=== PATIENT | male | born 1995 | race Caucasian/White ===

== ENCOUNTER 2021-08-19 14:58 | Emergency (ER) | payer OTHER, SELFPAY ==
[2021-08-19 15:16] VITALS: BP 149/94; PULSE 123; RESP 19; TEMP 39.6; O2SAT 100
--- NOTE | 2021-08-19 16:28 | ED.FEVER ---
HPI - Fever General Chief Complaint: Fever Stated Complaint: strep throat, fever Time Seen by Provider: 08/19/21 16:21 Source: patient Mode of arrival: ambulatory Limitations: no limitations History of Present Illness HPI Narrative: This is a 26 year old male that presents to the ER for sore throat present x 3 days. Associated with fever and myalgias. Reports he gets strep almost yearly and this feels like he has strep again. He has been taking over the counter pain medication with little relief. He took one Tylenol prior to arrival in the ED. Denies cough or shortness of breath. Related Data Allergies Allergy/AdvReac Type Severity Reaction Status Date / Time No Known Allergies Allergy Verified 08/19/21 16:47 Review of Systems Review of Systems: CONSTITUTIONAL: Reports fever ENT: Reports sore throat. Denies rhinorrhea, congestion RESPIRATORY: Denies cough or dyspnea. All systems reviewed & are unremarkable except as noted in HPI and below PMFSH Past Medical History Medical History (Updated 08/19/21 @ 17:42 by Nuria Velasco PA-C) No active medical problems Social History Social History (Updated 08/19/21 @ 16:31 by Nuria Velasco PA-C) Smoking status: Never smoker Exam Narrative: GENERAL: Well-appearing, well-nourished, and in no acute distress. HEAD: Normocephalic, atraumatic. EYES: EOMI. ENT: Nares clear, no rhinorrhea or epistaxis. Mucous membranes moist. Oropharynx with symmetric tonsillar hypertrophy and erythema, exudate present, no other lesions. Uvula midline. No trismus. Bilateral TMs pearly fernandes non-bulging NECK: Supple. No adenopathy or masses. CHEST: Clear to auscultation. No respiratory distress. No wheezes rales or rhonchi HEART: Regular rate and rhythm. No murmur heard. Normal peripheral pulses. EXTREMITIES: Normal range of motion. No edema. SKIN: Warm, dry, no rash. NEURO: No focal deficits. Alert and oriented x3. PSYCH: Normal mood and affect Course Vital Signs Vital signs: Vital Signs Temperature 103.2 F H 08/19/21 15:16 Pulse Rate 123 H 08/19/21 15:16 Respiratory Rate 19 08/19/21 15:16 Blood Pressure 149/94 H 08/19/21 15:16 Pulse Oximetry 100 08/19/21 15:16 Temperature 103.2 F H 08/19/21 15:16 Pulse Rate 123 H 08/19/21 15:16 Respiratory Rate 19 08/19/21 15:16 Blood Pressure 149/94 H 08/19/21 15:16 Pulse Oximetry 100 08/19/21 15:16 MDM - Fever MDM Narrative Medical decision making narrative: Patient presents to the emergency department for fever, sore throat, myalgias. Febrile upon arrival and tachycardic. Reporting he felt similar to when he has had strep in the past. Given dose of ibuprofen in the ED. Strep screen was negative. I did then order further work-up with influenza, COVID, and mono screen. Patient refused any further evaluation and management. Strep screen was sent for culture. Told patient I would send antibiotics to the pharmacy if this does come back positive he can start them. He was encouraged to return to the emergency department anytime for further evaluation and management Lab Data Attestation: I reviewed the patient's lab results. Labs: Strep Screen Presumptive Negative *(Reference Range: Negative)* Critical Care Time Critical Care Time Critical Care Time: No Discharge Plan Discharge Clinical Impression: Pharyngitis Qualifiers: Pharyngitis/tonsillitis etiology: unspecified etiology Qualified Code(s): J02.9 - Acute pharyngitis, unspecified Patient Disposition: Home, Self-Care Condition: Stable Instructions: Antibiotic Form, Pharyngitis (ED) Additional Instructions: Return to the ER at any time for further evaluation and treatment Rest. Tylenol or ibuprofen as needed for pain. Remain well-hydrated If your strep culture comes back positive you may start antibiotics as directed Prescriptions: New amoxicillin 500 mg capsule 500 mg PO Q
[2021-08-19] MEDS: IBUPROFEN 600 MG TABLET PO (16:48)
--- NOTE | 2021-08-19 17:28 | PC.NURSE ---
Patient was informed that there was a COVID and influenza swab ordered, however patient refused.
--- NOTE | 2021-08-19 17:39 | PC.NURSE ---
Patient refused lab draw. Provider aware.
== END 2021-08-19 17:51 | disposition home or self-care (01) ==
PROVIDERS: Emergency Provider Emergency Medicine
DX: J02.9 Acute pharyngitis, unspecified (principal)
CPT/HCPCS: 87081; 87804; 87880; 99283; A9270

== ENCOUNTER 2021-09-18 23:29 | Inpatient (IN) | payer OTHER, SELFPAY ==
--- NOTE | ~2021-09-18 | CT_ITS ---
EXAMINATION: CT chest abdomen pelvis w con DATE: 09/19/2021 03:18 INDICATION: Mid abdominal pain radiating to the chest. TECHNIQUE: Computed tomography (CT) of the chest, abdomen, and pelvis was performed with 100 mL Omnip aque 350 intravenous contrast. Automated exposure control and iterative reconstruction technique were employed. The dose-length product was 463.67 mGy-cm. COMPARISON: None FINDINGS: CHEST CT: Calcified right lung nodules and calcified right hilar lymph nodes are consistent with old granulomat ous disease. No pleural effusion. The heart size is normal. No pericardial effusion. There is mild ch ronic anterior wedging of multiple thoracic vertebral bodies associated with Schmorl's nodes. There i s moderate thoracic spondylosis. ABDOMEN/PELVIS CT: The liver, gallbladder, pancreas, adrenal glands, and kidneys are normal. Calcifications in the splee n are consistent with old granulomatous disease. There are no dilated loops of bowel. There is no boris dence of terminal ileitis. The appendix is normal. There are no pathologically enlarged lymph nodes. There is no free intraperitoneal fluid. There is mild lumbar spondylosis. IMPRESSION: 1. No etiology for the patient's symptoms. Reviewed, dictated and finalized at location A. OFFICE MARKUP CLERK
[2021-09-18 23:30] VITALS: BP 132/80; PULSE 122; RESP 20; TEMP 39.5; O2SAT 99
--- NOTE | 2021-09-18 23:43 | ED.ABDPAIN ---
HPI - Abdominal Pain General Chief Complaint: Abdominal Pain Stated Complaint: HIGH FEVER/ADB PAIN Time Seen by Provider: 09/18/21 23:40 Source: patient and RN notes reviewed Mode of arrival: ambulatory Limitations: no limitations History of Present Illness HPI narrative: Patient was recently at another facility where he had complete workup done for his abdominal pain. He was found to have CT evidence of Crohn's disease and a fever to 105. He was to be transferred to higher level of care at [facility] in [facility]. He refused transfer and signed out AMA. Says he has just been getting worse every day and finally could not take it anymore tonight. He apparently was also tested for COVID and was negative. MD elicited complaint: abdominal pain Onset (ago): day(s) (6) Pain Consistency: intermittent Location: diffuse Severity: severe Pain scale (0-10): 9 Quality: cramping, stabbing and sharp Radiation: none Migration to: no migration Exacerbating factors: eating and movement Relieving factors: nothing Associated symptoms: nausea, vomiting and diarrhea Treatments prior to arrival: NSAIDs Related Data Home Medications Medication Instructions Recorded Confirmed No Home Medications 09/18/21 09/18/21 Allergies Allergy/AdvReac Type Severity Reaction Status Date / Time No Known Allergies Allergy Verified 08/19/21 16:47 Review of Systems Review of Systems: All systems reviewed & are unremarkable except as noted in HPI and below PMFSH Past Medical History Medical History (Updated 09/19/21 @ 06:50 by Andrew Regalado MD) No active medical problems Social History Social History (Updated 09/18/21 @ 23:55 by Andrew Regalado MD) Smoking status: Never smoker Substance use: current Substance use type: marijuana Exam Const: General: no acute distress, alert and ill appearing acutely Nutritional Appearance: well nourished and thin Orientation/consciousness: patient oriented x3 HENMT: Head: normal to inspection Ears: external ears normal Eyes: Conjunctivae: conjunctivae normal Pupils: Equal, round and reactive pupils present EOM: EOMs intact bilaterally Neck: Neck: normal visual inspection Resp: Effort & Inspection: normal respiratory effort Auscultation: clear to auscultation bilaterally Cardio: Rate: tachycardic Rhythm: regular rhythm GI: GI Palp: Yes Soft to palpation, Yes Tenderness to palpation present (GI), Yes Guarding due to palpation present (GI) and Yes Rebound tenderness present Auscultation: Hypoactive bowel sounds present Back/Spine/Pelvis: Back: no CVA tenderness Cervical Spine: cervical ROM normal Thoracic/Lumbar Spine: thoraco-lumbar ROM normal Skin: General skin exam: normal color Rashes: no rashes Neuro: General: patient oriented x3, moves all extremities, no meningeal signs, no focal motor deficits and CN's II-XI intact bilaterally Speech: normal speech Gait exam (Neuro): Normal gait present Extrem: General: normal to inspection and no clubbing, cyanosis or edema Psych: Appearance: grossly normal and well kempt Mental Status: mental status grossly normal Affect: normal affect Attitude: cooperative Thought content: Yes Normal thought content present Course Course Emergency Course: I spoke with Dr. Desai, general surgeon for [facility] and he did not think this was a surgical case. He advised patient needed antibiotics and a colonoscopy at some later time. I discussed the case with Dejuan Morillo APN who agreed with admission. Vital Signs Vital signs: Vital Signs Temperature 39.5 C H 09/18/21 23:30 Pulse Rate 122 H 09/18/21 23:30 Respiratory Rate 20 09/18/21 23:30 Blood Pressure 132/80 09/18/21 23:30 Pulse Oximetry 99 09/18/21 23:30 Temperature 37.6 C H 09/19/21 06:30 Pulse Rate 78 09/19/21 06:30 Respiratory Rate 18 09/19/21 06:30 Blood Pressure 124/63 09/19/21 06:30 Pulse Oximetry 98 09/19/21 06:30
[2021-09-19] VITALS (12 sets, daily range): BP systolic 121–135; BP diastolic 63–79; PULSE 62–106; RESP 18–20; TEMP 36–39.3; O2SAT 95–100; BMI 25.0
[2021-09-19] MEDS: LACTATED RINGERS 1,000 ML 999 ML IV CONT (00:05)
[2021-09-19 00:11] LABS: Hematocrit 38.3 % (40.0-54.0); Hemoglobin 13.5 g/dL (14.0-18.0); Mean Corpuscular HGB Conc 35.2 g/dL (32.0-36.0); Mean Corpuscular Hemoglobin 31.1 pg (27.0-31.0); Mean Corpuscular Volume 88.2 fL (78.0-102.0); Mean Platelet Volume 8.8 fl (8.7-11.0); Platelet Count Result 300 K/mm3 (150-420); Red Blood Count 4.34 M/mm3 (4.70-6.10); Red Cell Distribution Width 13.2 % (11.6-14.4)
[2021-09-19 00:28] LABS: Alanine Aminotransferase 58 U/L (16-63); Albumin Level 3.2 g/dL (3.4-5.0); Alkaline Phosphatase 147 U/L (46-116); Anion Gap 15 mmol/L (8-16); Aspartate Amino Transferase 32 U/L (15-37); Bilirubin,Total 0.4 mg/dL (0.00-1.00); Blood Urea Nitrogen 13 mg/dL (7-18); Calcium 8.7 mg/dL (8.5-10.1); Carbon Dioxide 24 mmol/L (21-32); Chloride 94 mmol/L (98-108); Estimated CRCL calculation 72 ml/min; Estimated Glomerular Filt Rate > 60; Glucose 100 mg/dL (70-99); Lipase 148 U/L (73-393); Osmolality Calculated 276 mOsm/kg (285-295); Potassium 3.8 mmol/L (3.5-5.1); Sodium 133 mmol/L (136-145); Total Protein 7.7 g/dL (6.4-8.2)
[2021-09-19 00:33] LABS: Lactic Acid Reflex 1.7 mmol/L (0.4-2.0); White Blood Count 27.7 K/mm3 (4.8-10.8)
[2021-09-19 00:49] LABS: Neutrophils Percent Manual 78 % (46-73); Total Cells Counted 100
[2021-09-19 00:50] LABS: Band Neutrophils Percent 0 % (0-6); Eosinophils Absolute Manual 0.55 K/mm3 (0.02-0.5); Eosinophils Percent Manual 2 % (1-6); Lymphocytes Absolute Manual 3.87 K/mm3 (1.1-4.5); Lymphocytes Percent Manual 14 % (18-44); Monocytes Absolute Manual 1.66 K/mm3 (0.1-0.90); Monocytes Percent Manual 6 % (3-9); Platelet Estimate Adequate (Adequate); Toxic Granulation Present (NORMAL)
--- NOTE | 2021-09-19 02:50 | PC.NURSE ---
Call back from Dr León at [place] who spoke c ERP Dr Regalado, POC discussed for CT scan to be done again and compare to findings from [facility] 3 days ago. Pt informed on POC a this time. Pt resting and has no c/o at this time, VSS.
[2021-09-19 03:12] LABS: SARS-CoV-2 RNA PCR Negative (Negative)
--- NOTE | 2021-09-19 05:13 | PC.NURSE ---
Pt resting, still awaiting CT results, numerous calls made to [facility] for a report and told a radiologist is assigned to it. Explained to pt about wait due to CT results not read yet.
--- NOTE | 2021-09-19 05:20 | PC.NURSE ---
Call placed back to [facility] as it has been over 2 hrs awaiting for report. Spoke blanco silva and she will call radiologist to have read DEMARCUS. Awaiting results. Pt continues resting, no changes noted at this time.
[2021-09-19] MEDS: IBUPROFEN 600 MG TABLET PO (05:49)
--- NOTE | 2021-09-19 07:05 | PC.NURSE ---
Patient arrived to [facility] at 0700 via w/c with staff assist. Able to stand and transfer to bed. No valuable items with patient. Patient alert and oriented. Able to voice needs. Orientated to hospital environment. Educated on use of call light. Personal items within reach.
[2021-09-19] MEDS: ENOXAPARIN 40 MG/0.4 ML SYRINGE SUB-Q (07:56)
[2021-09-19] MEDS: DEXTROSE 5%/0.45% SOD CHL 1,000 ML 125 ML IV CONT (07:57)
[2021-09-19] MEDS: CIPROFLOXACIN 400 MG/D5W 200ML 200 ML 200 MG IVPB ×2 (09:31→21:17)
[2021-09-19] MEDS: methylPREDNISolone SOD SUCC 125 MG VIAL IV PUSH ×2 (09:32→09:52)
[2021-09-19] MEDS: metroNIDAZOLE 250 MG TABLET 500 MG PO ×3 (09:32→21:17)
--- NOTE | 2021-09-19 09:41 | PC.NURSE ---
Spoke with TIMBER HARVESTER OPERATOR about switching patient from D5 Na+ 0.45 to Na+0.9% and TIMBER HARVESTER OPERATOR advised to wait until patient has started eating/drinking.
--- NOTE | 2021-09-19 10:43 | PM.IMHP ---
H&P: HPI History of Present Illness Date/Time: 09/19/21 10:43 this is a 26-year-old male with a presented to ED with complaints of worsening abdominal pain. Patient denies any past medical history. According to patient a couple of days ago he presented to the [place] emergency department and was diagnosed with Crohn's disease at that time he also had a fever of 105. At that time it was advised that he transfer to [facility] for a specialty consult, patient refused and left AMA. Patient notes that his condition has worsened and as a result he had to come to our emergency department. Patient notes that his abdominal pain was unbearable. While in the ED per ED physician surgery was called and it was advised that the patient be treated with antibiotics and have a EGD completed as an outpatient. Vital signs 124/65, 86, 18, 98.7, 98% on room air, WBCs 27.7, hemoglobin 13.5, hematocrit 38.3, plt 300, NA 133, potassium 3.8, BUN 13 creatinine 1.26 glucose 100 lactic acid 1.7, AST 32, ALT 58, lipase 148, Covid negative, and CT unremarkable. The patient denies SOB, CP, palpitation, extremity numbness, lightheadedness, dizziness, constipation, diarrhea, chills, or fever. Patient notes that his abdominal pain has improved but is still exist. He continues to have nausea with no vomiting. Chief Complaint: Abdominal pain, nausea Review of Systems Review of Systems: A 14 organ system Review of Systems was performed and pertinent positives included in the HPI, otherwise remaining ROS is negative. [facility] Past Medical History Medical History (Updated 09/19/21 @ 11:12 by AKI Ozuna) No active medical problems Social History Social History (Updated 09/18/21 @ 23:55 by Andrew Regalado MD) Smoking packs per day: 0.5 Smoking cigarettes per day: 10.0 Years smoked: 7 Smoking pack-years: 3.50 Smoking status: Current every day smoker Tobacco type: cigarettes Second hand tobacco smoke exposure: Yes Alcohol intake: former Substance use: current Substance use type: marijuana Spiritual care concerns: No Meds Home Medications and Allergies Home Medications Medication Instructions Recorded Confirmed Type No Home Medications 09/18/21 09/18/21 History Allergies Allergy/AdvReac Type Severity Reaction Status Date / Time No Known Allergies Allergy Verified 08/19/21 16:47 Vital Signs Vital Signs - 24 hr 09/18/21 23:30 09/19/21 00:15 09/19/21 00:43 Temperature 103.1 F H 102.8 F H Pulse Rate 122 H 106 H Respiratory Rate 20 20 Blood Pressure 132/80 127/78 Pulse Oximetry 99 97 09/19/21 01:38 09/19/21 02:30 09/19/21 03:00 Temperature 98.7 F Pulse Rate 78 84 89 Respiratory Rate 20 20 18 Blood Pressure 130/64 124/75 121/69 Pulse Oximetry 95 98 97 09/19/21 05:27 09/19/21 06:07 09/19/21 06:22 Temperature 101.9 F H 102 F H 99.7 F H Pulse Rate 92 83 Respiratory Rate 20 20 Blood Pressure 135/79 126/68 Pulse Oximetry 97 97 09/19/21 06:30 09/19/21 08:00 Temperature 99.7 F H 98.7 F Pulse Rate 78 86 Respiratory Rate 18 18 Blood Pressure 124/63 124/65 Pulse Oximetry 98 98 Exam Narrative: GENERAL: This is a well-nourished, well-developed patient, in no apparent distress. HEAD: normocephalic, atraumatic. EYES: PERRL. Sclera clear/white. Vision is grossly intact. EARS: External ears normal, auditory canals clear and without drainage, TMs normal without perforation. Hearing grossly intact. NOSE: External nose normal with no obvious nasal discharge, nares without redness, no rhinorrhea. THROAT: Mucous membranes moist, posterior pharynx clear. NECK: Neck supple, non-tender without lymphadenopathy, masses or thyromegaly. CARDIOVASCULAR: Regular rate and rhythm without murmurs, gallops, or rubs. RESPIRATORY: Clear to auscultation. Breath sounds equal bilaterally. No wheezes, rales, or rhonchi. GASTROINTESTINAL: Abdomen soft, tender with palpation, guarding and, distended.
[2021-09-19 11:52] LABS: CRP < 0.5 mg/dL (0.0-0.9)
[2021-09-19] MEDS: HYDROmorphone HCL INJ (*CRX) 2 MG/ML VIAL 0.5 MG IV PUSH (13:27)
--- NOTE | 2021-09-19 16:26 | PC.NURSE ---
Patient called nurse into room to request Nicotine patch. Hospitalist notified. New order received for patch.
[2021-09-19] MEDS: SODIUM CHLORIDE 0.9% IV 1,000 ML 150 ML IV CONT (16:42)
[2021-09-19] MEDS: NICOTINE (*PBKC) 21 MG PATCH 1 PATCH TRANSDERM (16:43)
[2021-09-19] MEDS: HYDROcodone/acetaminophen (*CRX) 7.5-325 MG TABLET 1 TAB PO (21:19)
[2021-09-20] VITALS: BP 110/74; PULSE 71; RESP 18; TEMP 36.4; O2SAT 99
[2021-09-20] MEDS: SODIUM CHLORIDE 0.9% IV 1,000 ML 150 ML IV CONT (00:40)
[2021-09-20 05:10] LABS: Hematocrit 36.7 % (40.0-54.0); Hemoglobin 12.3 g/dL (14.0-18.0); Mean Corpuscular HGB Conc 33.5 g/dL (32.0-36.0); Mean Corpuscular Hemoglobin 30.4 pg (27.0-31.0); Mean Corpuscular Volume 90.8 fL (78.0-102.0); Mean Platelet Volume 8.9 fl (8.7-11.0); Platelet Count Result 349 K/mm3 (150-420); Red Blood Count 4.04 M/mm3 (4.70-6.10); Red Cell Distribution Width 13.5 % (11.6-14.4); White Blood Count 19.2 K/mm3 (4.8-10.8)
[2021-09-20 05:30] LABS: Alanine Aminotransferase 44 U/L (16-63); Albumin Level 2.7 g/dL (3.4-5.0); Alkaline Phosphatase 120 U/L (46-116); Anion Gap 8 mmol/L (8-16); Aspartate Amino Transferase 16 U/L (15-37); Bilirubin,Total 0.2 mg/dL (0.00-1.00); Blood Urea Nitrogen 11 mg/dL (7-18); Calcium 8.9 mg/dL (8.5-10.1); Carbon Dioxide 27 mmol/L (21-32); Chloride 103 mmol/L (98-108); Estimated CRCL calculation 108 ml/min; Estimated Glomerular Filt Rate > 60; Glucose 148 mg/dL (70-99); Lipase 519 U/L (73-393); Magnesium 2.4 mg/dL (1.8-2.4); Osmolality Calculated 288 mOsm/kg (285-295); Sodium 138 mmol/L (136-145); Total Protein 7.2 g/dL (6.4-8.2)
[2021-09-20 05:32] LABS: CRP > 10.6 mg/dL (0.0-0.9)
[2021-09-20] MEDS: metroNIDAZOLE 250 MG TABLET 500 MG PO ×2 (06:12→14:24)
[2021-09-20] MEDS: CIPROFLOXACIN 400 MG/D5W 200ML 200 ML 200 MG IVPB (07:51)
[2021-09-20] MEDS: NICOTINE (*PBKC) 21 MG PATCH 1 PATCH TRANSDERM (07:52)
[2021-09-20] MEDS: ENOXAPARIN 40 MG/0.4 ML SYRINGE SUB-Q (07:54)
[2021-09-20 08:00] VITALS: BP 117/75; PULSE 85; RESP 16; TEMP 36; O2SAT 100
--- NOTE | 2021-09-20 10:25 | WPDPN ---
Progress Note: A&P Assessment and Plan (1) Ileitis, terminal: Qualifiers: Digestive disease complication type: without complication Qualified Code(s): K50.00 - Crohn's disease of small intestine without complications Code(s): K50.00 - Crohn's disease of small intestine without complications Status: Acute Assessment and Plan: CT on 09/15/2021 from outside hospital indicates abnormal terminal ileum with slight wall thickening and decreased density in the wall suggesting terminal ileitis or possible early Crohn's. Several small but slightly enlarged inguinal lymph node. No evidence of appendicitis CT at our facility indicates no etiology for patient's symptoms Patient treated with Zosyn in the ED changed Cipro and Flagyl day 2, Solu-Medrol discontinued Surgeon on-call notified recommended the patient be treated with antibiotics and follow-up with a outpatient EGD Continue pain regiment and advanced to regular (2) Infection: Code(s): B99.9 - Unspecified infectious disease Status: Acute Assessment and Plan: Etiology unknown WBCs 27.7 >19.2 on admission temperature 102, afebrile Patient with 2 doses of Zosyn changed to clindamycin and Flagyl Blood culture and stool work-up pending CT of the abdomen unremarkable Lactic acid within normal limits CRP <0.5>>10.6 (3) Elevated lipase: Code(s): R74.8 - Abnormal levels of other serum enzymes Status: Acute Assessment and Plan: Slightly elevated at 519 Pancreas normal according to CT Subjective Date/time seen: 09/20/21 10:25 patient notes that he feels much better today than yesterday. Patient notes these able to eat and would like to have his diet advanced as he is no longer experiencing nausea and vomiting nor is he diaphoretic. He also noted that his pain is well controlled. The patient denies SOB, CP, palpitation, extremity numbness, lightheadedness, dizziness, constipation, diarrhea, chills, or fever. Possible discharge tomorrow patient's white count trending down Review of Systems Review of Systems: A 14 organ system Review of Systems was performed and pertinent positives included in the HPI, otherwise remaining ROS is negative. Exam Narrative: GENERAL: This is a well-nourished, well-developed patient, in no apparent distress. HEAD: normocephalic, atraumatic. EYES: PERRL. Sclera clear/white. Vision is grossly intact. EARS: External ears normal, auditory canals clear and without drainage, TMs normal without perforation. Hearing grossly intact. NOSE: External nose normal with no obvious nasal discharge, nares without redness, no rhinorrhea. THROAT: Mucous membranes moist, posterior pharynx clear. NECK: Neck supple, non-tender without lymphadenopathy, masses or thyromegaly. CARDIOVASCULAR: Regular rate and rhythm without murmurs, gallops, or rubs. RESPIRATORY: Clear to auscultation. Breath sounds equal bilaterally. No wheezes, rales, or rhonchi. GASTROINTESTINAL: Abdomen soft, tender with palpation, guarding and, distended. Bowel sounds are hypoactive. No hepato-splenomegaly, or palpable masses. SKIN: warm, intact with no suspicious lesions or rash, good texture and turgor. NEURO: awake, alert, and oriented to person, place and time. There were no obvious focal neurologic abnormalities. Steady gait EXTREMITIES: Normal range of motion. No edema. No calf tenderness. Negative Homans sign bilaterally. BACK: Nontender without deformity or crepitance. No flank tenderness. Objective Data Vital Signs Vital Signs: Vital Signs - 24 hr 09/19/21 14:00 09/19/21 16:00 09/20/21 00:00 Temperature 98.9 F 96.8 F L 97.6 F Pulse Rate 67 62 71 Respiratory Rate 18 18 18 Blood Pressure 122/64 121/68 110/74 Pulse Oximetry 98 100 99 09/20/21 08:00 Temperature 96.8 F L Pulse Rate 85 Respiratory Rate 16 Blood Pressure 117/75 Pulse Oximetry 100 Intake/Output Intake/Output: Intake & Output 09/17/21 09/18/21
[2021-09-20 16:00] VITALS: BP 124/80; PULSE 98; RESP 16; TEMP 36.6; O2SAT 99
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
--- NOTE | 2021-09-28 10:24 | PC.NURSE ---
Unable to contact for discharge call back.
== END 2021-09-20 17:40 | disposition left against medical advice (07) | DRG 245 ==
LOC: CHSED 09-19 05:43 → CHS2ND 09-19 06:34
PROVIDERS: Nurse Practitioner; Admitting Provider Emergency Medicine; Emergency Provider Emergency Medicine; Visit Provider Emergency Medicine
DX: K50.00 Crohn's disease of small intestine without complications (principal); B99.9 Unspecified infectious disease; R74.8 Abnormal levels of other serum enzymes; F17.210 Nicotine dependence, cigarettes, uncomplicated
CPT/HCPCS: 36415; 71260; 74177; 80053; 83605; 83690; 83735; 85025; 85027; 86140; 87040; 87045; 87177; 87209; 87269; 87272; 87427; 96365; 96367; 99285; A9270; C9803; J0131; J0744; J1170; J1650; J2543; J2930; J7030; J7120; Q9967; U0003; U0005

== ENCOUNTER 2022-02-19 14:42 | Emergency (ER) | payer OTHER, SELFPAY ==
--- NOTE | ~2022-02-19 | CT_ITS ---
EXAMINATION: CT abdomen pelvis w con DATE: 02/19/2022 16:41 INDICATION: Crohns, Epigastric pain/ vomiting TECHNIQUE: Computed tomography (CT) of the abdomen and pelvis was performed with 100 mL Omnipaque-350 intravenous contrast. Automated exposure control and iterative reconstruction technique were employe d. The dose-length product was 326.22 mGy-cm. COMPARISON: 09/19/2021. FINDINGS: Lower thorax: Unremarkable Liver: Normal. Biliary/Gallbladder: Gallbladder is normal. No bile duct dilation. Pancreas: No mass or duct dilation. Spleen: Normal. Adrenals:No mass. Kidneys: No mass, stone, or hydronephrosis. GI tract: No small or large bowel dilation. Normal appendix. Antral wall edema. Colonic submucosal fa t as can be seen with chronic IBD. Mesentery/Peritoneum: No ascites, mass, or free air. Retroperitoneum: No mass. Pelvis: Pelvic organs are within normal limits. Soft Tissues: Soft tissues and body wall unremarkable. Bones: No acute osseous finding. IMPRESSION: Antral wall edema may reflect antral gastritis, possibly an active flare of Crohn's disease given his tory. No other acute abdominal pelvic process detected. Reviewed, dictated and finalized at location K. IMPRESSION: Antral wall edema may reflect antral gastritis, possibly an active flare of [employer] hn's disease given history. No other acute abdominal pelvic process detected.
[2022-02-19 14:55] VITALS: BP 152/87; PULSE 78; RESP 18; TEMP 36.6; O2SAT 97
--- NOTE | 2022-02-19 15:40 | ED.GENADULT ---
HPI - General Adult General Chief complaint: Abdominal Pain Stated complaint: vomiting, abd pain History of Present Illness HPI narrative: This is a 26-year-old male with history of Crohn's disease presenting to ED with 3 days of nausea/vomiting epigastric pain. Patient said that he had dinner with his family on Sunday. Then went and started have multiple episodes of nonbloody nonbilious vomiting per day. He is unable to keep food or liquids. After multiple episodes of vomiting he did start experiencing epigastric pain. He describes the pain as a burning sensation in the epigastrium it is content of 10 intensity, it is constant getting worse. He has never experienced pain like this before. There are no alleviating factors and is worsened vomiting. The patient denies fever, chills, chest pain, breathing, urinary symptoms, diarrhea or constipation. Patent the patient has never had surgery on his abdomen for Crohn's disease before. He has had hospitalization for colitis in the past. Related Data Allergies Allergy/AdvReac Type Severity Reaction Status Date / Time No Known Allergies Allergy Verified 02/19/22 15:05 Review of Systems Constitutional: Constitutional: Denies fever(s) Eyes: Eyes: Reports no additional eye complaints ENT: Denies dysphagia Cardiovascular: Cardiovascular: Denies chest pain Respiratory: Respiratory: Denies chest congestion Gastrointestinal: Gastrointestinal: Denies abdominal pain Genitourinary: Genitourinary: Denies hematuria Musculoskeletal: Musculoskeletal: Denies back pain Integumentary/Breasts: Skin/Breast: Denies rash Neurologic: Denies confusion Psychiatric: Psychiatric: Denies anxiety Endocrine: Endocrine: Denies excessive sweating Hematologic/Lymphatic: Hematologic/Lymphatic: Denies easy bleeding Allergic/Immunologic: Allergic/Immunologic: Denies lip swelling PMFSH Past Medical History Medical History (Updated 02/19/22 @ 17:43 by Salazar Shea MD) Crohn's disease No active medical problems Social History Social History Smoking packs per day: 0.5 Smoking cigarettes per day: 10.0 Years smoked: 7 Smoking pack-years: 3.50 Smoking status: Current every day smoker Tobacco type: cigarettes Second hand tobacco smoke exposure: Yes Alcohol intake: former Substance use: current Substance use type: marijuana Spiritual care concerns: No Exam Narrative: Patient is lying supine in bed. Appears uncomfortable. He is vomiting during our interview. Const: Nutritional Appearance: well nourished Orientation/consciousness: patient oriented x3 HENMT: Head: normal to inspection Ears: external ears normal General nose exam: Normal external nose present Face and sinus: normal facial exam Mouth: Yes Normal oral and palatal mucosa present Eyes: Conjunctivae: conjunctivae normal Pupils: Equal, round and reactive pupils present Neck: Neck: normal visual inspection Chest: Chest palpation & inspection: normal inspection of the chest Resp: Effort & Inspection: normal respiratory effort Cardio: Rate: regular rate Rhythm: regular rhythm GI: Inspection: non-distended GI Palp: Yes Soft to palpation, Yes Tenderness to palpation present (GI) ( Epigastric), No Guarding due to palpation present (GI), No Rigid due to palpation and No Rebound tenderness present Back/Spine/Pelvis: Back: no CVA tenderness Skin: General skin exam: normal color Neuro: General: patient oriented x3 and moves all extremities Extrem: General: normal to inspection Psych: Affect: normal affect Attitude: cooperative Course Vital Signs Vital signs: Vital Signs Temperature 98 F 02/19/22 14:55 Pulse Rate 78 02/19/22 14:55 Respiratory Rate 18 02/19/22 14:55 Blood Pressure 152/87 H 02/19/22 14:55 Pulse Oximetry 97 02/19/22 14:55 Oxygen Delivery Room Air 02/19/22 14:55 Temperature 98 F
[2022-02-19] MEDS: SODIUM CHLORIDE 0.9% IV 3,000 ML 999 ML IV CONT (15:45)
[2022-02-19 15:46] LABS: Basophils Absolute Auto 0.04 K/mm3 (0.00-0.10); Basophils Percent Auto 0.3 % (0.0-1.0); Eosinophils Absolute Auto 0.15 K/mm3 (0.02-0.50); Eosinophils Percent Auto 1.1 % (1.0-6.0); Hematocrit 50.8 % (40.0-54.0); Immature Granulocyte Absolute 0.07 K/mm3 (0.00-0.00); Immature Granulocyte Percent A 0.5 % (0.0-0.0); Lymphocytes Absolute Auto 2.06 K/mm3 (1.10-4.50); Lymphocytes Percent Auto 15.4 % (18.0-42.0); Mean Corpuscular HGB Conc 35.4 g/dL (32.0-36.0); Mean Corpuscular Hemoglobin 31.6 pg (27.0-31.0); Mean Corpuscular Volume 89.3 fL (78.0-102.0); Mean Platelet Volume 8.9 fl (8.7-11.0); Monocytes Absolute Auto 0.73 K/mm3 (0.10-0.90); Monocytes Percent Auto 5.5 % (2.0-11.0); Neutrophils Absolute Auto 10.3 K/mm3 (1.7-7.2); Neutrophils Percent Auto 77.2 % (50.0-70.0); Platelet Count Result 382 K/mm3 (150-420); Red Blood Count 5.69 M/mm3 (4.70-6.10); Red Cell Distribution Width 12.5 % (11.6-14.4); White Blood Count 13.4 K/mm3 (4.8-10.8)
[2022-02-19] MEDS: PANTOPRAZOLE SODIUM IV 40 MG VIAL IV PUSH (15:47)
[2022-02-19] MEDS: ONDANSETRON INJ 4 MG/2 ML VIAL IV PUSH (15:48)
[2022-02-19] MEDS: FAMOTIDINE 20 MG/2 ML VIAL IV PUSH (15:50)
[2022-02-19] MEDS: HYDROmorphone HCL INJ (*CRX) 2 MG/ML VIAL 0.5 MG IV PUSH ×2 (15:52→18:22)
[2022-02-19 16:03] LABS: Alanine Aminotransferase 25 U/L (16-63); Albumin Level 4.8 g/dL (3.4-5.0); Alkaline Phosphatase 164 U/L (46-116); Anion Gap 13 mmol/L (8-16); Aspartate Amino Transferase 21 U/L (15-37); Bilirubin,Total 0.8 mg/dL (0.00-1.00); Blood Urea Nitrogen 15 mg/dL (7-18); Calcium 10.1 mg/dL (8.5-10.1); Carbon Dioxide 26 mmol/L (21-32); Chloride 100 mmol/L (98-108); Estimated CRCL calculation 66 ml/min; Estimated Glomerular Filt Rate > 60; Glucose 113 mg/dL (70-99); Lipase 94 U/L (73-393); Osmolality Calculated 289 mOsm/kg (285-295); Potassium 3.3 mmol/L (3.5-5.1); Sodium 139 mmol/L (136-145); Total Protein 8.7 g/dL (6.4-8.2)
[2022-02-19 16:20] VITALS: BP 129/74; PULSE 71; RESP 16; O2SAT 99
[2022-02-19 17:45] VITALS: BP 130/74; PULSE 65; RESP 16; TEMP 36.4; O2SAT 99
[2022-02-19 18:34] VITALS: BP 131/77; PULSE 68; RESP 18; TEMP 36.2; O2SAT 99
== END 2022-02-19 18:37 | disposition home or self-care (01) ==
PROVIDERS: Emergency Provider Emergency Medicine
DX: K29.70 Gastritis, unspecified, without bleeding (principal)
CPT/HCPCS: 36415; 74177; 80053; 83690; 85025; 96361; 96374; 96375; 96376; 99284; C9113; J1170; J2405; J7030; Q9967